=== PATIENT | female | born 1970 | race Caucasian/White ===

== ENCOUNTER 2017-04-23 13:10 | Emergency (ER) | payer OTHER ==
[~2017-04-23] VITALS: Ht 165.1 cm; Wt 62.6 kg
--- NOTE | ~2017-04-23 | EKG ---
PATIENT: TRISHA HURST UNIT #: [id number] Ventricular Rate: 69 BPM Atrial Rate: 69 BPM P-R Interval: 150 ms QRS Duration: 88 ms Q-T Interval: 374 ms QTC Calculation(Bezet): 400 ms P [place]: 68 degrees Calculated R [place]: 70 degrees Calculated T [place]: 44 degrees Diagnosis Line: Normal sinus rhythm Diagnosis Line: Normal ECG Diagnosis Line: When compared with ECG of 30-MAY-2016 03:20, Diagnosis Line: QT has shortened Diagnosis Line: Confirmed by LARA BRASWELL MD ([id number]) on Diagnosis Line: 04/24/2017 11:35:30 AM INTERPRETING MD: FRENCH DAVID
--- NOTE | ~2017-04-23 | CR72 ---
[facility] A Service of [facility] & [facility] RADIOLOGY TEXT RESULTS PATIENT: TRISHA HURST LOCATION: [facility] : 74 UNIT #: [id number] AGE: [address]: Moises Solorzano MD SEX: F ORDER DR: [id number] [facility] [address] [place], [place] [address] [id number] E MR#: [id number] #: [id number] NAME: TRISHA HURST : 1970 SEX: F STUDY DATE/TIME: 04/23/2017 14:48 UNIT: [facility] ROOM: STUDY DESCRIPTION: CR Chest Single View Portable Attending Physician: Moises Solorzano M.D. Ordering Physician: Moises Solorzano M.D. Primary Care Physician: Javon Mast M.D. MEDICAL IMAGING REPORT This report is preliminary unless electronic signature is present EXAM Chest x-ray 04/23/2017 HISTORY 46-year-old female in the ED after a syncopal episode today. She notes some shortness of air. TECHNIQUE AP portable upright chest x-ray. FINDINGS Heart size and pulmonary vascularity are within normal limits. The lungs are expanded and clear. No visible pulmonary infiltrate or pleural effusion. No change since 04/20/2016. IMPRESSION No active disease. No change since 04/20/2016. Dictated by... Christoph Castaneda M.D. THIS IS AN ELECTRONICALLY VERIFIED REPORT Christoph Castaneda M.D. at 04/24/2017 9:50 PM PAOLA/momo TD: 04/24/2017 03:11 JOB #: [id number] MEDICAL IMAGING REPORT Page 1 of 1 COPY
[~2017-04-23 13:10] MED LIST: ASPIR-TRIN325 MG PO; BACLOFEN10 MG PO; BENTYL10 MG PO; BENTYL20 MG DOB; BUSPAR15 MG PO; FAMOTIDINE PO; FLEXERIL; FLEXERIL PO; LOMOTIL TABLET1 TAB PO; LORTAB 10-5001 EACH; LORTAB 5/500 TA1 TA1 PO; METOZOLV ODT10 MG PO; MIGRAINE PILL; NICOTINE TRANSD14 MG EXT; OMEPRAZOLE20 M1 PO; OMEPRAZOLE40 MG PO; PHENERGAN12.5 MG/SU RC; PHENERGAN25 M1 DOB; PHENERGAN25 M1 PO; PHENERGAN25 MG PO; PREDNISONE10 MG/DOSE PO; PRILOSEC; PRILOSEC PO; TYLOX 5-500 CA1 EACH PO; ULTRAM PO; VICODIN 5/500 T1 TAB PO; ZOFRAN ODT4 MG PO; ZOFRAN PO
[2017-04-23 15:05] LABS: BASOPHIL# 0.1 X10e3 (0-0.3); BASOPHIL% 1.3 % (0-2.5); EOSINOPHIL% 0.1 % (0.0-7.0); HEMATOCRIT 40.8 % (35.0-45.0); HEMOGLOBIN 13.8 gm/dL (12.0-16.0); LYMPHOCYTE# 1.8 X10e3 (1.0-3.5); LYMPHOCYTE% 16.4 % (17.0-45.0); MEAN CELL VOLUME 91.5 FL (83-96); MEAN CORPUSCULAR HGB CONC 33.9 g/dL (30-36); MEAN PLATELET VOLUME 7.7 FL (6.5-11.5); MONOCYTE# 0.6 X10e3 (0-1.0); MONOCYTE% 5.4 % (3.0-12.0); NEUTROPHIL# 8.4 X10e3 (1.5-7.1); NEUTROPHIL% 76.8 % (40-75); PLATELET COUNT 372 X10e3 (140-420); RED BLOOD COUNT 4.46 X10e (3.90-5.30); RED CELL DISTRIBUTION WIDTH 13.9 % (11.0-15.5); WHITE BLOOD COUNT 10.9 X10e3 (4.0-10.5)
[2017-04-23 15:08] LABS: DIFF IND NO
[2017-04-23 15:35] LABS: ALBUMIN SERUM 3.8 g/dL (3.5-5.0); BILIRUBIN, DIRECT 0.1 mg/dL (0.0-0.2); BILIRUBIN,INDIRECT 0.3 mg/dL (0.0-0.9); BILIRUBIN,TOTAL 0.4 mg/dL (0.2-2.0); BUN/CREATININE RATIO 26.66; CALCIUM SERUM 8.8 mg/dL (8.4-10.2); CREATININE SERUM 0.6 mg/dL (0.6-1.4); GLOM FILT RATE Estimated 110.9 mL/min (>60); POTASSIUM 3.8 mmol/L (3.5-5.1); PROTEIN TOTAL SERUM 7.2 g/dL (6.0-8.3)
[2017-04-23 16:06] LABS: URINE SOURCE CLEAN CATCH
[2017-04-23 16:17] LABS: URINE APPEARANCE CLOUDY; URINE BILIRUBIN NEG (NEG); URINE BLOOD NEG (NEG); URINE COLOR YELLOW; URINE GLUCOSE NEG (NEG); URINE KETONE NEG (NEG); URINE LEUKOCYTE ESTERASE NEG (NEG); URINE NITRATE NEG (NEG); URINE PROTEIN NEG (NEG); URINE SPECIFIC GRAVITY 1.006 (1.003-1.035); URINE UROBILINOGEN 0.2 MG/DL (NEG)
[2017-04-23 16:23] LABS: CULTURE INDICATED? NO
== END 2017-04-23 16:46 | disposition home or self-care (01) ==
LOC: CED 13:10
PROVIDERS: Emergency Medicine
DX: R55 Syncope and collapse (principal); T38.0X5A Adverse effect of glucocorticoids and synthetic analogues, initial encounter; J06.9 Acute upper respiratory infection, unspecified; J45.909 Unspecified asthma, uncomplicated; Z98.51 Tubal ligation status; F17.200 Nicotine dependence, unspecified, uncomplicated; Z88.2 Allergy status to sulfonamides; Z91.040 Latex allergy status
CPT/HCPCS: 36415; 71010; 80048; 80076; 81003; 84703; 85025; 93005; 96361; 96374; 96375; 96376; 99284; J2405; J2765